=== PATIENT | male | born 1965 | race Caucasian/White ===

== ENCOUNTER 2016-06-11 09:40 | Observation (INO) ==
[2016-06-11] MEDS ORDERED: Ondansetron 4 MG/2 ML VIAL IVP PRN ×3 (10:30→19:40)
[2016-06-11] MEDS ORDERED: 0.9 % Sodium Chloride 1,000 ML ONE (10:32)
--- NOTE | 2016-06-11 10:39 | Urology History & Physical ---
Date of Encounter: 06/11/16 Time of Encounter: 10:36 Assessment and Plan (1) Calculus of kidney Current Visit: Yes Status: Acute 51-year-old man presents with a history of left flank pain. He had a CT scan which showed a distal left ureteral stone as well as a left mid pole stone. He is having some nausea and vomiting. His recent KUB showed bowel distention. We will admit him for nausea control. We'll also give him some pain medication. I will obtain a CT scan of the abdomen and pelvis pseudohypha the stone as well as the bowel distention. If he still has a distal left ureteral stone, then I would recommend proceeding with a left ureteroscopy, laser lithotripsy, and stent placement. He was informed of the risks of the surgery which include but are not limited to bleeding, infection, injury to other structures, need for further procedures, stent irritation, incomplete treatment, need for open repair, need for nephrostomy tube, and the risk of anesthesia. He is willing to proceed. (2) Nausea Current Visit: Yes Status: Acute We will see what the CT scan shows. We will manage his nausea accordingly. History of Present Illness Chief complaint: Left lower quadrant pain HPI: 51-year-old man presents with left flank pain. He had a CT scan on April 08, 2017. This showed a 1 mm stone at the left ureterovesical junction. In addition there was a left mid pole calculus. He return to the emergency department and had a KUB. This showed some bowel distention. He has been feeling somewhat nauseated. He says he is passing gas. The pain is located in the left lower quadrant. It is still very severe. At this point, we elected to admit him to the hospital secondary to his pain and nausea. Past Med Surg Social Fam HX - Past Medical History Medical history: no medical history Psychiatric history: no psych history - Social History Smoking Status: Never smoker Smokeless Tobacco Status: Yes Alcohol use: none Drug use: none Medications and Allergies Ibuprofen [Motrin] 600 mg PO Q8HR PRN #30 tablet 06/08/16 [Rx] Ondansetron ODT [Zofran ODT] 4 mg SL Q4HR PRN #20 tab.rapdis 06/08/16 [Rx] OxyCODONE/APAP 5/325 [Percocet 5/325 MG] 1 each PO Q4HR PRN #10 tablet 06/08/16 [Rx] Polyethylene Glycol 3350 [MiraLAX] 17 gm PO DAILY 7 Days 06/10/16 [Rx] Azithromycin [Zithromax] 250 mg PO DAILY 06/11/16 [History] PredniSONE [PredniSONE] 30 mg PO BID 06/11/16 [History] Promethazine/Dextromethorphan [Promethazine-Dm Syrup] 5 ml PO Q4H PRN 06/11/16 [ History] Allergies No Known Allergies Allergy (Verified 06/08/16 07:29) Review of Systems - Constitutional no chills, no fever(s) - EENT Nose, mouth and throat: no dizziness - Cardiovascular no chest pain - Respiratory no dyspnea - Gastrointestinal nausea, no vomiting - Genitourinary flank pain, no hematuria - Musculoskeletal no back pain - Integumentary no erythema, no rash - Neurological no weakness - Psychiatric no suicidal ideation - Hematologic/Lymphatic no easy bleeding - Allergic/Immunologic no wheezing Exam - General physical appearance Present: well developed, well nourished, no distress - Eyes Absent: icteric - ENT Present: normal nares - Neck Present: trachea midline - Respiratory Present: normal respiratory effort - Cardiovascular Cardiovascular exam IM: RRR - Abdomen Abdomen: Present: soft Urology Results - Labs All other labs normal. - Imaging CT scan - abdomen: report reviewed, image reviewed CT scan - pelvis: report reviewed, image reviewed
[2016-06-11] MEDS ORDERED: Naloxone 0.4 MG/ML INJ IVP PRN ×2 (10:42→19:40)
[2016-06-11] MEDS ORDERED: *HR* Promethazine 25 MG/ML VIAL IVP PRN ×2 (10:42→19:40)
[2016-06-11] MEDS ORDERED: Acetaminophen 325 MG TABLET PO PRN ×2 (10:42→19:40)
[2016-06-11] MEDS ORDERED: 0.9 % Sodium Chloride 1,000 ML IVC SCH ×2 (10:45→19:40)
[2016-06-11] MEDS: *HR* HYDROmorphone (PF) 1 MG/ML SYRINGE IVP PRN ×3 (10:48→14:43)
[2016-06-11 12:38] LABS: BUN/Creatinine Ratio 12 (6-26); Blood Urea Nitrogen 17 mg/dL (8-26); Calcium 9.8 mg/dL (8.6-10.8); Carbon Dioxide 21 mEq/L (19-29); Chloride 101 mEq/L (98-109); Glucose 109 mg/dL (70-99); Osmolality,Calculated 280 (280-300); Potassium 4.2 mEq/L (3.5-4.5); Sodium 134 mEq/L (136-145); eGFR For African Americans > 60 (> 60); eGFR For Non-African Americans 51 (> 60)
[2016-06-11 14:10] LABS: Basophils % 0.2 %; Eosinophils % 0.2 %; Hematocrit 42.3 % (37.5-50.1); Hemoglobin 14.7 g/dL (12.9-16.9); Immature Granulocytes % 0.5 % (0-4); Immature Platelets 8.2 % (1.1-6.1); Lymphocytes # 0.9 K/mcL (0.6-4.6); Lymphocytes % 8.6 %; Mean Corpuscular HGB Conc 34.8 g/dL (31.6-35.5); Mean Corpuscular Hemoglobin 31.3 pg (28.0-33.3); Mean Corpuscular Volume 90.2 fL (83.0-100.0); Mean Platelet Volume 10.6 fL (9.4-12.4); Monocytes # 0.7 K/mcL (0.0-1.3); Monocytes % 6.7 %; Neutrophils # 8.6 K/mcL (1.6-8.9); Platelet Count 168 K/mcL (140-400); Red Blood Count 4.69 M/mcL (4.19-5.50); Red Cell Distribution Width 12.1 % (11.5-14.5); Segmented Neutrophils % 83.8 %
--- NOTE | 2016-06-11 14:44 | Anesthesia Evaluation PreOp ---
Date of Encounter: 06/11/16 Time of Encounter: 14:43 - Past History Planned Operation: L-ureteroscopic stone extraction w/Laser/stent Cardiac History: Denies any Significant Hx Pulmonary History: Other (Chewing tobacco) SOFTWARE DEVELOPER INTERN History: Denies Any Significant HX Other Medical History: Renal (Kidney stones) Anesthesia History: No Prior Anesthetic Complications, Past Anesthesia (Knee surgery, Appy, Inguinal Hernia Repair) Alcohol Use: none Drug use: none Medications and Allergies Polyethylene Glycol 3350 [MiraLAX] 17 gm PO DAILY 7 Days 06/10/16 [Rx] Azithromycin [Zithromax] 250 mg PO DAILY 06/11/16 [History] PredniSONE [PredniSONE] 30 mg PO DAILY 06/11/16 [History] Promethazine/Dextromethorphan [Promethazine-Dm Syrup] 5 ml PO Q4H PRN 06/11/16 [ History] Allergies No Known Allergies Allergy (Verified 06/11/16 11:40) - Meds/Allergy Pre-op Review Medications Reviewed: Yes Allergies Reviewed: Yes Beta Blockers on Current Med List: No Anesthesia Results - Labs 06/11/16 12:04 06/11/16 12:04 Laboratory Results Impressions Abdomen/Pelvis CT 06/11/16 10:28 IMPRESSION: 1. Stable 2 mm left UVJ calculus with mild left-sided hydronephrosis and hydroureter. Interval increase in perinephric and periureteric infiltration. Additional nonobstructive lower pole left renal calculus, stable. 2. Otherwise no acute abnormality within the abdomen or pelvis. Stable mild splenomegaly. D/ / 06/11/2016 11:23:38 Junior Last MD / nayla Interpreting Provider: Junior Last MD Anesthesia Exam Vital Signs Temp Pulse Resp BP Pulse Ox 06/11/16 11:33 98.5 F 90 16 182/100 95 Intake and Output 06/10/16 06/11/16 06/11/16 23:59 07:59 15:59 Other: Meal NPO Weight 122.924 kg Blood Glucose* 111 Patient Weight 06/11/16 23:59 Weight 122.924 kg Height: 5'3" Weight: 271# BMI = 34 NPO (# of Hours): 0800 diet Mtn Dew - HEENT Pupil (Motor): Pupils equal, EOMI Mallampati: IV (Difficult appearing airway, BUT pt denies having any awake FOI or any reports of actual difficult airway securement) Oral Opening: Greater than 3 - SOFTWARE DEVELOPER INTERN LOC: Oriented SOFTWARE DEVELOPER INTERN Motor: Normal RUE, Normal LUE, Normal RLE, Normal LLE, Normal Face SOFTWARE DEVELOPER INTERN Sensory: Normal: RUE, LUE, RLE, LLE, Face - Cardiac Rhythm: Regular Murmur: None - Pulmonary Breath Sounds: bilateral Clear Respiratory Effort: Symmetrical Anesthesia Assess/Plan ASA Score: 2 (OBesity, Chewing Tobacco) Modified Branch Scale for Level of Consciousness: Cooperative, oriented, and tranquil Anesthetic Plan: General Monitoring Plan: Standard Monitors Recovery Plan: PACU Anes Supervising Prov Stmt: Pt seen/evaluated, R&B Discussed, questions answered and consent obtained. Leo Mitchell MD
[2016-06-11] MEDS ORDERED: Levofloxacin 500 MG/100 ML 500 MG/100 ML BAG IVPB ONE (16:09)
[2016-06-11] MEDS ORDERED: Metoclopramide 10 MG/2 ML VIAL ONE (17:37)
[2016-06-11] MEDS ORDERED: Famotidine 20 MG/2 ML VIAL ONE (17:38)
[2016-06-11] MEDS ORDERED: Acetaminophen IV 1,000 MG/100 ML INFUS..BTL ONE (17:38)
[2016-06-11] MEDS ORDERED: Gabapentin 300 MG CAPSULE ONE (17:41)
[2016-06-11] MEDS ORDERED: Ondansetron 4 MG/2 ML VIAL ONE (17:42)
[2016-06-11] MEDS ORDERED: Ketorolac 30 MG/ML VIAL ONE ×2 (17:42→18:22)
[2016-06-11] MEDS ORDERED: *HR* Midazolam HCl 2 MG/2 ML VIAL ONE (17:44)
[2016-06-11] MEDS ORDERED: *HR* FentaNYL (PF) 100 MCG/2 ML VIAL ONE ×2 (17:44)
[2016-06-11] MEDS ORDERED: *HR* Propofol 200 MG/20 ML VIAL IVP ONE (17:44)
[2016-06-11] MEDS ORDERED: Lidocaine -MPF 2% 2 ML VIAL ONE (17:49)
--- NOTE | 2016-06-11 18:03 | Operative Note ---
Date of procedure: 06/11/16 Pre-op diagnosis: Left distal ureteral stone. Left renal stone Post-op diagnosis: same Procedure: Left ureteroscopy, basket stone extraction, and stent placement. Implants: 6 Irish by 26 cm double-J stent. Complications: None Anesthesia: GENARO Surgeon: Gonzalo Izaguirre Estimated blood loss (cc): 1 Specimen: none Condition: stable Disposition: PACU Procedure in Detail: Indications: Mr. Angel is a 51-year-old gentleman who has a history of left flank pain. A CT scan showed a 1 mm stone in the distal left ureter. In addition he has a left renal stone. He elected to undergo a left ureteroscopy and basket stone extraction. He wishes to have a staged left proximal ureteroscopy, laser lithotripsy, and stent placement. He is aware of the risks of the procedure including but not limited to bleeding, infection, injury to other structures, need for further procedures, stent irritation, and the risk of anesthesia. He is willing to proceed. Procedure: After informed consent was obtained the patient was brought back to the operating room and placed in supine position. A time out was performed. General anesthesia was administered and an LMA was placed. He was then placed in the lithotomy position. He was prepped and draped in the usual sterile fashion. Cystoscopy was performed. The anterior urethra was normal. There was no evidence of bladder tumors. The ureteral orifices were in the normal orthotopic position. The Sensor wire was placed in the left ureteral orifice and brought into the kidney under fluoroscopic guidance. I then advanced the semirigid ureteroscope into the ureter. The stone was basket extracted. A zip wire was placed up the left ureteral orifice and brought into the kidney under fluoroscopic guidance. The flex ureteroscope was advanced into the kidney. The stone was seen in the lower pole calyx. I difficulty getting the scope onto the stone. As it was very difficult to get an appropriate location I felt at this point be best just to place a stent. Consideration for further treatment can be done down the road without a shockwave lithotripsy or repeat ureteroscopy after the ureter has been dilated and a sheath can be more safely inserted. The ureteroscope was then removed. A 6 Irish by 26cm JJ stent was then placed with good curl seen in the kidney and the bladder. The dangle string left intact. The dangle string was adhered to the penis using a Tegaderm. The patient was then awakened from general anesthesia and brought to recovery room in good condition. All sponge, needle, and instrument counts were correct.
--- NOTE | 2016-06-11 18:06 | Discharge Summary ---
Date of Encounter: 06/12/16 Time of Encounter: 06:37 - Discharge Diagnosis (1) Calculus of kidney Priority: Primary Status: Acute (2) Nausea Priority: Secondary Status: Acute - Discharge Medications Prescriptions: Ondansetron ODT [Zofran ODT] 4 mg SL Q4HR PRN #15 tab.rapdis PRN Reason: Nausea Ciprofloxacin [Cipro] 500 mg PO ONCE #1 tablet Docusate [Colace] 100 mg PO BID #60 capsule Oxycodone HCl/Acetaminophen [Percocet 5-325 mg Tablet] 1 each PO Q4H PRN #20 tablet PRN Reason: Pain Phenazopyridine HCl [Pyridium] 200 mg PO TIDAC #12 tab Home Medications: Polyethylene Glycol 3350 [MiraLAX] 17 gm PO DAILY 7 Days 06/10/16 [Rx] Azithromycin [Zithromax] 250 mg PO DAILY 06/11/16 [History] Ciprofloxacin [Cipro] 500 mg PO ONCE #1 tablet 06/11/16 [Rx] Docusate [Colace] 100 mg PO BID #60 capsule 06/11/16 [Rx] Ondansetron ODT [Zofran ODT] 4 mg SL Q4HR PRN #15 tab.rapdis 06/11/16 [Rx] Oxycodone HCl/Acetaminophen [Percocet 5-325 mg Tablet] 1 each PO Q4H PRN #20 tablet 06/11/16 [Rx] Phenazopyridine HCl [Pyridium] 200 mg PO TIDAC #12 tab 06/11/16 [Rx] PredniSONE 30 mg PO DAILY 06/11/16 [History] Promethazine/Dextromethorphan [Promethazine-Dm Syrup] 5 ml PO Q4H PRN 06/11/16 [ History] Allergies/Adverse Reactions: Allergies No Known Allergies Allergy (Verified 06/11/16 11:40) Labs on day of discharge: Labs from last 24 hours 06/11/16 06/11/16 06/11/16 17:01 12:04 12:04 WBC 10.3 RBC 4.69 Hgb 14.7 Hct 42.3 MCV 90.2 MCH 31.3 MCHC 34.8 RDW 12.1 Plt Count 168 MPV 10.6 Immature Gran % 0.5 Seg Neutrophils % 83.8 Lymphocytes % 8.6 Monocytes % 6.7 Eosinophils % 0.2 Basophils % 0.2 Neutrophils # 8.6 Lymphocytes # 0.9 Monocytes # 0.7 Eosinophils # 0.0 Basophils # 0.0 Immature Plt Fraction 8.2 H Sodium 134 L Potassium 4.2 Chloride 101 Carbon Dioxide 21 BUN 17 Creatinine 1.45 H Est GFR ( Amer) > 60 Est GFR (Non-Af Amer) 51 L BUN/Creatinine Ratio 12 Glucose 109 H POC Glucose 113 H Calculated Osmolality 280 Calcium 9.8 06/11/16 11:35 WBC RBC Hgb Hct MCV MCH MCHC RDW Plt Count MPV Immature Gran % Seg Neutrophils % Lymphocytes % Monocytes % Eosinophils % Basophils % Neutrophils # Lymphocytes # Monocytes # Eosinophils # Basophils # Immature Plt Fraction Sodium Potassium Chloride Carbon Dioxide BUN Creatinine Est GFR ( Amer) Est GFR (Non-Af Amer) BUN/Creatinine Ratio Glucose POC Glucose 111 H Calculated Osmolality Calcium - Impressions ITS Impressions Abdomen/Pelvis CT 06/11/16 10:28 IMPRESSION: 1. Stable 2 mm left UVJ calculus with mild left-sided hydronephrosis and hydroureter. Interval increase in perinephric and periureteric infiltration. Additional nonobstructive lower pole left renal calculus, stable. 2. Otherwise no acute abnormality within the abdomen or pelvis. Stable mild splenomegaly. D/ / 06/11/2016 11:23:38 Junior Last MD / nayla Interpreting Provider: Junior Last MD Date of admission: 06/11/16 09:59 Primary care physician: Martinez Caba Jr, MD Discharging clinician: Gonzalo Izaguirre Anticipated date of discharge: 06/12/16 - Patient Status Disposition: Home, Self-Care Condition: Good Functional capacity at discharge: independent ambulation Overall status at discharge: patient is progressing back to baseline - Discharge Instructions Follow Up With: Martinez Caba Jr, MD [Primary Care Provider] - Gonzalo Izaguirre MD [Partnered Physician] - (1 week for a string stent removal.) Additional Instructions: 1. The patient can follow up in 1 week for a stent removal. He has a string attached to the stent. 2. He should expect to feel flank pain with voiding. 3. The patient should call for any fevers, chills, nausea, emesis, or uncontrolled pain. 4. Please provide a work excuse if necessary for up to 1 week off. - Diet and Activity Activity: increase activity as tolerated Diet: advance to your usual diet - Hospital Course Hospital course: Mr. Angel is a 51 year old male who has a history of left flank pain. He had a CT scan which showed a distal 1 mm left ureteral stone and a 7 mm left renal stone. He was admitted for pain control. He underwent a left ureteroscopy, basket stone extraction and stent placement on June 11, 2016. He did well after surgery and was discharged home on postoperative day #1. . - Time Spent with Patient Total time spent providing and/or coordinating discharge services: Less than 30 minutes Exam Initial Vital Signs Temp Pulse Resp BP Pulse Ox 98.5 F 90 16 182/100 95 06/11/16 11:33 06/11/16 11:33 06/11/16 11:33 06/11/16 11:33 06/11/16 11:33 - General physical appearance Present: well developed, well nourished, no distress - Eyes Absent: icteric - ENT Present: normal nares - Neck Present: trachea midline - Respiratory Present: normal respiratory effort - Cardiovascular Cardiovascular exam IM: RRR - Abdomen Abdomen: Present: soft - Genitourinary normal penis with no external lesions
[2016-06-11] MEDS ORDERED: *HR* HYDROmorphone (PF) 1 MG/ML SYRINGE IVP PRN ×2 (18:40→19:40)
[2016-06-11] MEDS ORDERED: *HR* Labetalol 100 MG/20 ML MDV IVP PRN (18:40)
[2016-06-11] MEDS ORDERED: *HR* OxyCODONE/APAP 5/325 TABLET PO PRN (19:40)
--- NOTE | 2016-06-11 19:45 | Anesthesia Evaluation Post Op ---
Date of Encounter: 06/11/16 Time of Encounter: 19:20 - Vital Signs Vital Signs: Last Vital Signs Temp 98.6 F 06/11/16 19:30 Pulse 72 06/11/16 19:30 Resp 18 06/11/16 19:30 BP 131/84 06/11/16 19:30 Pulse Ox 96 06/11/16 19:30 - Lungs Lungs: Clear Ascult./Percussion - Airway Airway: Non-obstructed - Cardiovascular Regular Rate - Mental Status Mental Status: Alert & Oriented, Answers Appropriately - Pain Pain Scale: 2 - Nausea Vomiting Nausea Vomiting: Not Present - Hydration Hydration: Ice chips - Discharge PostOp Status: Transfer Patient to floor
[2016-06-12 05:01] VITALS: BP 141/82
== END 2016-06-12 06:32 | disposition home or self-care (01) ==
LOC: 3ANU
PROVIDERS: ADMIT Urology; ATTEND Urology